=== PATIENT | male | born 1955 | race Caucasian/White ===

== ENCOUNTER 2017-03-01 13:54 | Emergency (ER) | payer OTHER ==
[~2017-03-01] VITALS: Ht 180.3 cm; Wt 75.3 kg
[~2017-03-01 13:54] MED LIST: ASPI-515 PO; CEPH-368 PO; CYCL-259 PO; HYDR-3307 PO; LEVO75TA5 PO; LISI-167 PO; MELO15TA24 PO; PHEN100C PO; PRAV10TA2 PO; RANI150T4 PO
[2017-03-01] MEDS ORDERED: AMPICILLIN/SULBACTAM 3 GM in SODIUM CHLORIDE 0.9% 100 ML IVPB ONE (14:30)
[2017-03-01] MEDS ORDERED: SODIUM CHLORIDE 0.9% 1,000ML IVBOLUS ONE (14:30)
[2017-03-01] MEDS ORDERED: SODIUM CHLORIDE FLUSH 10ML SYR IVF ONE (14:30)
[2017-03-01 14:59] LABS: HEMATOCRIT 42.6 % (39.2-51.8); HEMOGLOBIN 14.6 g/dL (13.7-18.0); WHITE BLOOD COUNT 8.2 x10^3/uL (3.4-10)
[2017-03-01 15:08] LABS: BLOOD UREA NITROGEN 21 mg/dL (7-18)
[2017-03-01] MEDS ORDERED: VANCOMYCIN PER PHARMACY MC ONE (16:30)
[2017-03-01] MEDS ORDERED: VANCOMYCIN 1,500 MG in SODIUM CHLORIDE 0.9% 250 ML IV ONE (16:30)
[2017-03-01] MEDS ORDERED: DIPHENHYDRAMINE 50 MG/ML, 1ML ONE (18:03)
[2017-03-01] MEDS ORDERED: DIPHENHYDRAMINE 50 MG/ML, 1ML IVPush ONE (18:30)
[2017-03-01 18:45] VITALS: BP 142/76
== END 2017-03-01 19:25 | disposition home or self-care (01) ==
LOC: ED 18:32
DX: L03.113 Cellulitis of right upper limb (principal)
CPT/HCPCS: 36415; 80048; 82040; 83605; 85025; 87040; 93971; 96365; 96375; 99285; J1200; J3370; J7030; J7050

== ENCOUNTER 2020-08-21 14:48 | Outpatient (CLI) | payer MEDICARE ==
[~2020-08-21 14:48] MED LIST changes: -ASPI-515 PO; +ASPI-963 PO; -CYCL-259 PO; +CYCL10TA2 PO; +HYDR-3248 PO; -HYDR-3307 PO
== END 2020-08-21 23:59 | disposition home or self-care (01) ==
LOC: RAD 14:48
PROVIDERS: ATTEND Orthopaedic Surgery
DX: S83.421A Sprain of lateral collateral ligament of right knee, initial encounter (principal); S66.319A Strain of extensor muscle, fascia and tendon of unspecified finger at wrist and hand level, initial encounter; M25.421 Effusion, right elbow; M19.021 Primary osteoarthritis, right elbow; X58.XXXA Exposure to other specified factors, initial encounter; Y93.89 Activity, other specified; Y92.89 Other specified places as the place of occurrence of the external cause; Y99.8 Other external cause status